=== PATIENT | male | born 1985 | race Caucasian/White ===

== ENCOUNTER 2018-06-18 14:38 | Emergency (ER) | payer MEDICAID, OTHER ==
[~2018-06-18] VITALS: Ht 121.9 cm; Wt 34.0 kg
[2018-06-18 14:41] VITALS: BP 136/72
== END 2018-06-18 15:50 | disposition left against medical advice (07) ==
LOC: ER 14:38
DX: Z00.00 Encounter for general adult medical examination without abnormal findings (principal); G80.9 Cerebral palsy, unspecified
CPT/HCPCS: 99283

== ENCOUNTER 2018-06-26 16:37 | Inpatient (IN) | payer MEDICAID, OTHER ==
[~2018-06-26] VITALS: Ht 167.6 cm; Wt 44.9 kg
[2018-06-26] MEDS ORDERED: CITA10SO MT (16:57)
[2018-06-26] MEDS ORDERED: SODIUM CHLORIDE 0.9% 1000ML BAG (SEPSIS BOLUS) IV ONE (17:30)
[2018-06-26 18:16] LABS: BASOPHILS % 0.3 % (0.0-2.0); CHLORIDE 104 mEq/L (98-107); EOSINOPHILS % 0.8 % (0.0-5.0); HEMATOCRIT. 44.8 % (42.0-52.0); HEMOGLOBIN. 15.2 g/dL (14.0-18.0); INR 1.1; LYMPHOCYTES % 7.8 % (20.0-50.0); MEAN CORPUSCULAR HEMOGLOBIN 30.8 pg (28.0-32.0); MEAN CORPUSCULAR VOLUME 91.2 fL (80.0-94.0); MONOCYTES % 4.4 % (2.0-8.0); NEUTROPHILS % 86.7 % (40.0-76.0); PLATELET 195 x1000/uL (130-400); PROTHROMBIN TIME 11.4 sec (9.1-11.1); RED BLOOD CELL COUNT 4.92 mill/uL (4.7-6.1); RED CELL DISTRIBUTION WIDTH 13.4 % (11.6-14.6)
[2018-06-26] MEDS ORDERED: ACETAMINOPHEN 650MG SUPP PR ONE (20:15)
[2018-06-26 20:17] LABS: CLARITY URINE CLEAR (CLEAR); COLOR URINE YELLOW (YELLOW); KETONES URINE NEGATIVE (NEGATIVE); LEUKOCYTE ESTERASE URINE NEGATIVE (NEGATIVE); NITRITE URINE NEGATIVE (NEGATIVE); OCCULT BLOOD URINE NEGATIVE (NEGATIVE); PH URINE 5.5 (4.5-8.0); PROTEIN URINE NEGATIVE (NEGATIVE); UROBILINOGEN URINE 0.2 E.U./dL (0.2-1.0)
[2018-06-26] MEDS ORDERED: PIPERACILLIN/TAZ 3.375G PREMIX 50 ML IV ONE (21:00)
[2018-06-26] MEDS ORDERED: VANCOMYCIN 1 G PREMIX 200 ML IV ONE (21:00)
[2018-06-26] MEDS ORDERED: DOCUSATE SODIUM 100MG CAPSULE PO PRN (21:45)
[2018-06-26] MEDS ORDERED: HYDROCODONE/ACETAMINOPHEN 5/325MG TABLET PO PRN (21:45)
[2018-06-26] MEDS ORDERED: CLONIDINE 0.1MG TABLET PO PRN (21:45)
[2018-06-26] MEDS ORDERED: ACETAMINOPHEN 325MG TABLET PO PRN (21:45)
[2018-06-26] MEDS ORDERED: IPRATROPIUM/ALBUTEROL 0.5-3(2.5)MG/3ML NEB INH PRN (21:45)
[2018-06-26] MEDS ORDERED: ONDANSETRON HCL 4MG/2ML INJ IV PRN (21:45)
[2018-06-26] MEDS: SODIUM CHLORIDE 0.9% 1,000 ML IV SCH (22:09)
[2018-06-26 23:50] LABS: CHLORIDE 105 mEq/L (98-107)
[2018-06-26 23:58] LABS: CREATINE KINASE 292 IU/L (39-308)
[2018-06-27] VITALS (8 sets, daily range): BP systolic 101–145; BP diastolic 47–89
[2018-06-27 00:01] LABS: CREATINE KINASE MB FRACTION 4.2 ng/mL (0.5-3.6)
[2018-06-27] MEDS ORDERED: ACETAMINOPHEN 650MG SUPP PR PRN (01:00)
[2018-06-27] MEDS ORDERED: ENOXAPARIN 40MG/0.4ML SYR SUBCUT SCH (09:00)
[2018-06-27] MEDS ORDERED: BISACODYL 10MG SUPP PR NR (09:15)
[2018-06-27] MEDS ORDERED: BISACODYL 10MG SUPP PR PRN (09:15)
[2018-06-27 09:18] LABS: BASOPHILS % 0.5 % (0.0-2.0); EOSINOPHILS % 0.6 % (0.0-5.0); HEMATOCRIT. 44.1 % (42.0-52.0); LYMPHOCYTES % 16.1 % (20.0-50.0); MEAN CORPUSCULAR VOLUME 91.2 fL (80.0-94.0); MEAN PLATELET VOLUME 8.7 fl (7.4-10.4); MONOCYTES % 7.5 % (2.0-8.0); NEUTROPHILS % 75.3 % (40.0-76.0); PLATELET 191 x1000/uL (130-400); RED BLOOD CELL COUNT 4.83 mill/uL (4.7-6.1)
[2018-06-27 09:31] LABS: LDL CHOLESTEROL 90 mg/dL (5-100)
[2018-06-27 09:32] LABS: HDL CHOLESTEROL 50 mg/dL (40-59)
[2018-06-27 09:35] LABS: CREATINE KINASE 391 IU/L (39-308)
[2018-06-27 09:36] LABS: CREATINE KINASE MB FRACTION 4.4 ng/mL (0.5-3.6)
[2018-06-27 10:53] LABS: *AMPHETAMINES SCREEN URINE NEGATIVE (NEGATIVE); *BARBITURATES SCREEN URINE NEGATIVE (NEGATIVE)
[2018-06-27 10:54] LABS: *BENZODIAZEPINES SCREEN URINE NEGATIVE (NEGATIVE); *COCAINE SCREEN URINE NEGATIVE (NEGATIVE)
[2018-06-27 10:56] LABS: CANNABINOID URINE SCREEN NEGATIVE (NEGATIVE); METHADONE URINE SCREEN NEGATIVE (NEGATIVE); OPIATES URINE SCREEN NEGATIVE (NEGATIVE); PHENCYCLIDINE URINE SCREEN NEGATIVE (NEGATIVE)
[2018-06-27] MEDS ORDERED: DOCUSATE SODIUM 250MG CAPSULE PO SCH (11:00)
[2018-06-27] MEDS ORDERED: IPRATROPIUM/ALBUTEROL 0.5-3(2.5)MG/3ML NEB HHN PRN (11:15)
[2018-06-27] MEDS ORDERED: CEFEPIME 1,000 MG in DEXTROSE 5% WATER 50 ML IV SCH (12:00)
[2018-06-27] MEDS: SODIUM CHLORIDE 0.9% 1,000 ML IV SCH (13:28)
[2018-06-27] MEDS ORDERED: METRONIDAZOLE 500 MG PREMIX 100 ML IV SCH (14:00)
== END 2018-06-27 20:30 | disposition short-term general hospital (02) | DRG 720 ==
LOC: ER 16:51 → 5EST 21:37 → EDBEDREQ 21:38 → EDBEDREQSVC 21:38 → EDBEDREQTM 21:38 → ENRESERV 06-27 01:05
PROVIDERS: ADMIT Internal Medicine; ATTEND Internal Medicine
DX: A41.9 Sepsis, unspecified organism (principal); J69.0 Pneumonitis due to inhalation of food and vomit; R65.20 Severe sepsis without septic shock; K59.00 Constipation, unspecified; F32.9 Major depressive disorder, single episode, unspecified; G80.9 Cerebral palsy, unspecified
CPT/HCPCS: 36415; 71045; 74176; 80048; 80061; 80305; 82550; 82553; 83605; 83735; 84145; 84443; 84484; 85379; 93005; 96365; 96375; 99285; J0692; J1650; J2543; J3370; J3490; J7030; J7060

== ENCOUNTER 2019-01-14 19:33 | Emergency (ER) | payer MEDICAID, OTHER ==
[~2019-01-14] VITALS: Ht 162.6 cm; Wt 59.0 kg
[2019-01-14] MEDS ORDERED: SODIUM CHLORIDE 0.9% 1,000 ML IV ONE (20:06)
[2019-01-14] MEDS ORDERED: LORAZEPAM 2MG/ML CPJ IV ONE (20:15)
[2019-01-14 22:17] LABS: HEMATOCRIT. 41.4 % (42.0-52.0); HEMOGLOBIN. 14.1 g/dL (14.0-18.0); MEAN CORPUSCULAR HEMOGLOBIN 30.8 pg (28.0-32.0); MEAN CORPUSCULAR VOLUME 90.1 fL (80.0-94.0); MEAN PLATELET VOLUME 9.7 fl (7.4-10.4); PLATELET 187 x1000/uL (130-400); RED BLOOD CELL COUNT 4.59 mill/uL (4.7-6.1); RED CELL DISTRIBUTION WIDTH 13.6 % (11.6-14.6)
[2019-01-14 22:19] LABS: CHLORIDE 106 mEq/L (98-107)
[2019-01-14 22:23] LABS: ETHANOL BLOOD < 10 mg/dL
[2019-01-14 22:28] LABS: CREATINE KINASE 158 IU/L (39-308)
[2019-01-14 22:32] LABS: CREATINE KINASE MB FRACTION 2.9 ng/mL (0.5-3.6)
[2019-01-14 22:44] LABS: PLATELET ESTIMATE NORMAL
[2019-01-14 23:29] VITALS: BP 109/55
== END 2019-01-15 | disposition home or self-care (01) ==
LOC: ER 19:33
DX: R45.1 Restlessness and agitation (principal); R06.02 Shortness of breath; F32.9 Major depressive disorder, single episode, unspecified; G80.9 Cerebral palsy, unspecified
CPT/HCPCS: 36415; 80053; 80320; 82550; 82553; 83690; 84443; 84484; 85025; 93005; 96361; 96374; 99284; J2060; J7030; G0480

== ENCOUNTER 2019-01-30 18:24 | Inpatient (IN) | payer MEDICAID ==
[2019-01-30] VITALS (14 sets, daily range): BP systolic 74–129; BP diastolic 40–76
[~2019-01-30] VITALS: Ht 165.1 cm; Wt 49.9 kg
[2019-01-30] MEDS ORDERED: VECURONIUM BROMIDE 10 MG/VIAL IV ONE ×2 (18:27→18:45)
[2019-01-30] MEDS ORDERED: SODIUM CHLORIDE 0.9% 10ML VIAL ONE (18:27)
[2019-01-30] MEDS ORDERED: ETOMIDATE 2MG/ML 10ML VIAL IV ONE ×2 (18:27→18:45)
[2019-01-30] MEDS ORDERED: SODIUM CHLORIDE 0.9% 1000ML BAG (SEPSIS BOLUS) IV ONE (18:45)
[2019-01-30] MEDS ORDERED: PROPOFOL 200MG/20ML VIAL IV ONE (18:45)
[2019-01-30] MEDS ORDERED: PROPOFOL 10MG/ML 100ML 100 ML IV ONE (18:45)
[2019-01-30] MEDS ORDERED: VANCOMYCIN 1 G PREMIX 200 ML IV ONE (18:45)
[2019-01-30] MEDS ORDERED: PIPERACILLIN/TAZ 3.375G PREMIX 50 ML IV ONE (18:45)
[2019-01-30 18:54] LABS: BG CARBOXYHEMOGLOBIN 0.3 % (0.5-1.5); BG DEOXYHEMOGLOBIN 0.4 % (0.0-5.0); BG FRACTION INSPIRED OXYGEN 100; BG HCO3 ACT 19.2 mmol/L (22.0-26.0); BG METHEMOGLOBIN 0.5 % (0.0-1.5); BG OXYGEN SATURATION 99.6 % (92.0-98.5); BG OXYHEMOGLOBIN 98.8 % (94.0-97.0); BG PCO2 50.4 mmHg (35.0-45.0); BG PH 7.198 (7.350-7.450); BG PO2 476.8 mmHg (75.0-100.0); BG SAMPLE SITE RIGHT BRACHIAL; BG TIDAL VOLUME(mL) 450 mL; BG TOTAL HEMOGLOBIN 13.9 g/dL (12.0-18.0); BG VENT MODE VENT - A/C; BG VENT RATE 16 set
[2019-01-30 19:09] LABS: BASOPHILS % 0.3 % (0.0-2.0); EOSINOPHILS % 3.5 % (0.0-5.0); HEMATOCRIT. 47.3 % (42.0-52.0); HEMOGLOBIN. 15.2 g/dL (14.0-18.0); LYMPHOCYTES % 36.2 % (20.0-50.0); MEAN CORPUSCULAR HEMOGLOBIN 30.9 pg (28.0-32.0); MEAN CORPUSCULAR VOLUME 95.9 fL (80.0-94.0); MEAN PLATELET VOLUME 9.7 fl (7.4-10.4); MONOCYTES % 7.2 % (2.0-8.0); NEUTROPHILS % 52.8 % (40.0-76.0); PLATELET 199 x1000/uL (130-400); RED BLOOD CELL COUNT 4.93 mill/uL (4.7-6.1); RED CELL DISTRIBUTION WIDTH 14.1 % (11.6-14.6)
[2019-01-30 19:13] LABS: CHLORIDE 107 mEq/L (98-107); INR 1.2
[2019-01-30 19:57] LABS: CLARITY URINE CLEAR (CLEAR); COLOR URINE YELLOW (YELLOW); KETONES URINE NEGATIVE (NEGATIVE); LEUKOCYTE ESTERASE URINE TRACE (NEGATIVE); NITRITE URINE NEGATIVE (NEGATIVE); OCCULT BLOOD URINE TRACE (NEGATIVE); PROTEIN URINE 2+ (NEGATIVE); SPECIFIC GRAVITY URINE 1.016 (1.005-1.030); UROBILINOGEN URINE 0.2 E.U./dL (0.2-1.0)
[2019-01-30] MEDS ORDERED: ONDANSETRON HCL 4MG/2ML INJ IV PRN (20:00)
[2019-01-30] MEDS ORDERED: CLONIDINE 0.1MG TABLET PO PRN (20:00)
[2019-01-30] MEDS ORDERED: PIPERACILLIN/TAZOBACTAM 3.375 G in DEXT 5% WATER 100 ML IV SCH (20:00)
[2019-01-30] MEDS ORDERED: FENTANYL CITRATE/PF 500 MCG in SODIUM CHLORIDE 0.9% 40 ML IV PRN ×2 (21:00→21:15)
[2019-01-30] MEDS: SODIUM CHLORIDE 0.9% 1,000 ML IV SCH (22:56)
[2019-01-30] MEDS ORDERED: CITA10SO PO (23:22)
[2019-01-30] MEDS: PIPERACILLIN/TAZOBACTAM 3.375 G in DEXT 5% WATER 100 ML IV SCH (23:24)
[2019-01-30 23:44] LABS: BG BASE EXCESS -0.3 mmol/L (-2.0-2.0); BG CARBOXYHEMOGLOBIN 0.3 % (0.5-1.5); BG DEOXYHEMOGLOBIN 7.2 % (0.0-5.0); BG FRACTION INSPIRED OXYGEN 60; BG HCO3 ACT 25.3 mmol/L (22.0-26.0); BG METHEMOGLOBIN 0.3 % (0.0-1.5); BG OXYGEN SATURATION 92.8 % (92.0-98.5); BG OXYHEMOGLOBIN 92.2 % (94.0-97.0); BG PCO2 45.2 mmHg (35.0-45.0); BG PH 7.366 (7.350-7.450); BG PO2 65.7 mmHg (75.0-100.0); BG SAMPLE SITE RIGHT BRACHIAL; BG TIDAL VOLUME(mL) 450 mL; BG TOTAL HEMOGLOBIN 13.3 g/dL (12.0-18.0); BG VENT MODE VENT - A/C; BG VENT RATE 20 set
[2019-01-30] MEDS: IPRATROPIUM/ALBUTEROL 0.5-3(2.5)MG/3ML NEB HHN SCH (23:58)
[2019-01-31] VITALS (103 sets, daily range): BP systolic 65–144; BP diastolic 30–88
[2019-01-31] MEDS ORDERED: IPRATROPIUM BROMIDE (0.02%) 0.5MG/2.5ML NEB HHN SCH
[2019-01-31] MEDS: VANCOMYCIN 1250MG in DEXTROSE 5% WATER 250ML IV SCH ×3 (01:54→19:28)
[2019-01-31] MEDS: PROPOFOL 10MG/ML 100ML 100 ML IV PRN ×3 (01:55→23:18)
[2019-01-31] MEDS: IPRATROPIUM/ALBUTEROL 0.5-3(2.5)MG/3ML NEB HHN SCH ×5 (04:01→20:31)
[2019-01-31] MEDS: PIPERACILLIN/TAZOBACTAM 3.375 G in DEXT 5% WATER 100 ML IV SCH ×4 (05:18→23:17)
[2019-01-31 05:57] LABS: BASOPHILS % 0.1 % (0.0-2.0); EOSINOPHILS % 2.3 % (0.0-5.0); HEMATOCRIT. 39.8 % (42.0-52.0); HEMOGLOBIN. 13.5 g/dL (14.0-18.0); LYMPHOCYTES % 7.1 % (20.0-50.0); MEAN CORPUSCULAR HEMOGLOBIN 31.4 pg (28.0-32.0); MEAN CORPUSCULAR VOLUME 92.5 fL (80.0-94.0); MEAN PLATELET VOLUME 9.7 fl (7.4-10.4); MONOCYTES % 5.8 % (2.0-8.0); NEUTROPHILS % 84.7 % (40.0-76.0); PLATELET 141 x1000/uL (130-400)
[2019-01-31 06:06] LABS: CHLORIDE 112 mEq/L (98-107)
[2019-01-31 07:56] LABS: BG BASE EXCESS -3.3 mmol/L (-2.0-2.0); BG DEOXYHEMOGLOBIN 0.5 % (0.0-5.0); BG FRACTION INSPIRED OXYGEN 70; BG HCO3 ACT 21.4 mmol/L (22.0-26.0); BG METHEMOGLOBIN 0.5 % (0.0-1.5); BG OXYGEN SATURATION 99.5 % (92.0-98.5); BG PCO2 37.1 mmHg (35.0-45.0); BG PH 7.378 (7.350-7.450); BG PO2 323.2 mmHg (75.0-100.0); BG SAMPLE SITE RIGHT RADIAL; BG TIDAL VOLUME(mL) 450 mL; BG TOTAL HEMOGLOBIN 13.7 g/dL (12.0-18.0); BG VENT MODE VENT - A/C; BG VENT RATE 20 set
[2019-01-31] MEDS: PANTOPRAZOLE SODIUM 40 MG/VIAL IV SCH (09:02)
[2019-01-31] MEDS: ACETAMINOPHEN 325MG TABLET PO PRN (11:58)
[2019-01-31] MEDS ORDERED: SODIUM CHLORIDE 0.9% 500 ML IV ONE (12:45)
[2019-01-31] MEDS: SODIUM CHLORIDE 0.9% 1,000 ML IV SCH (12:51)
[2019-01-31] MEDS: FENTANYL CITRATE/PF 500 MCG in SODIUM CHLORIDE 0.9% 40 ML IV PRN ×2 (14:43→20:39)
[2019-02-01] VITALS (96 sets, daily range): BP systolic 71–145; BP diastolic 38–88
[2019-02-01] MEDS: IPRATROPIUM/ALBUTEROL 0.5-3(2.5)MG/3ML NEB HHN SCH ×6 (00:36→19:54)
[2019-02-01] MEDS ORDERED: PROPOFOL 10MG/ML 100ML 100 ML IV PRN (01:00)
[2019-02-01] MEDS: VANCOMYCIN 1250MG in DEXTROSE 5% WATER 250ML IV SCH (01:20)
[2019-02-01] MEDS: PIPERACILLIN/TAZOBACTAM 3.375 G in DEXT 5% WATER 100 ML IV SCH ×4 (05:40→23:19)
[2019-02-01 05:44] LABS: CHLORIDE 114 mEq/L (98-107)
[2019-02-01] MEDS: PANTOPRAZOLE SODIUM 40 MG/VIAL IV SCH (08:21)
[2019-02-01] MEDS: SODIUM CHLORIDE 0.9% 1,000 ML IV SCH ×2 (08:22→15:36)
[2019-02-01 08:38] LABS: BG CARBOXYHEMOGLOBIN 0.3 % (0.5-1.5); BG DEOXYHEMOGLOBIN 3.6 % (0.0-5.0); BG FRACTION INSPIRED OXYGEN 50; BG HCO3 ACT 22.8 mmol/L (22.0-26.0); BG METHEMOGLOBIN 0.3 % (0.0-1.5); BG OXYGEN SATURATION 96.4 % (92.0-98.5); BG OXYHEMOGLOBIN 95.8 % (94.0-97.0); BG PCO2 43.3 mmHg (35.0-45.0); BG PH 7.339 (7.350-7.450); BG PO2 92.1 mmHg (75.0-100.0); BG SAMPLE SITE RIGHT BRACHIAL; BG TIDAL VOLUME(mL) 450 mL; BG TOTAL HEMOGLOBIN 12.5 g/dL (12.0-18.0); BG VENT MODE VENT - A/C; BG VENT RATE 20 set
[2019-02-01 10:17] LABS: BASOPHILS % 0.2 % (0.0-2.0); EOSINOPHILS % 2.6 % (0.0-5.0); HEMATOCRIT. 34.6 % (42.0-52.0); LYMPHOCYTES % 9.9 % (20.0-50.0); MEAN CORPUSCULAR HEMOGLOBIN 31.4 pg (28.0-32.0); MEAN CORPUSCULAR VOLUME 90.8 fL (80.0-94.0); MEAN PLATELET VOLUME 8.9 fl (7.4-10.4); MONOCYTES % 5.9 % (2.0-8.0); NEUTROPHILS % 81.4 % (40.0-76.0); PLATELET 129 x1000/uL (130-400); RED BLOOD CELL COUNT 3.81 mill/uL (4.7-6.1); RED CELL DISTRIBUTION WIDTH 13.8 % (11.6-14.6)
[2019-02-01] MEDS: CITALOPRAM HYDROBROMIDE 10MG TABLET PO SCH (10:52)
[2019-02-01] MEDS: ACETAMINOPHEN 325MG TABLET PO PRN (13:45)
[2019-02-01] MEDS: FENTANYL CITRATE/PF 500 MCG in SODIUM CHLORIDE 0.9% 40 ML IV PRN (18:03)
[2019-02-01] MEDS: VANCOMYCIN 1 G PREMIX 200 ML IV SCH (21:14)
[2019-02-01] MEDS ORDERED: FENTANYL CITRATE/PF 1,000 MCG in SODIUM CHLORIDE 0.9% 80 ML IV PRN (21:30)
[2019-02-01] MEDS: LORAZEPAM 2MG/ML CPJ IV PRN (21:44)
[2019-02-02] VITALS (96 sets, daily range): BP systolic 87–163; BP diastolic 48–118
[2019-02-02] MEDS: IPRATROPIUM/ALBUTEROL 0.5-3(2.5)MG/3ML NEB HHN SCH ×7 (00:29→23:59)
[2019-02-02] MEDS: FENTANYL CITRATE/PF 1,000 MCG in SODIUM CHLORIDE 0.9% 80 ML IV PRN ×3 (00:58→21:29)
[2019-02-02] MEDS: SODIUM CHLORIDE 0.9% 1,000 ML IV SCH ×2 (04:01→18:26)
[2019-02-02] MEDS: LORAZEPAM 2MG/ML CPJ IV PRN ×2 (05:06→19:27)
[2019-02-02] MEDS: PIPERACILLIN/TAZOBACTAM 3.375 G in DEXT 5% WATER 100 ML IV SCH ×4 (05:07→23:42)
[2019-02-02 05:30] LABS: BASOPHILS % 0.2 % (0.0-2.0); EOSINOPHILS % 1.1 % (0.0-5.0); HEMATOCRIT. 38.4 % (42.0-52.0); HEMOGLOBIN. 13.2 g/dL (14.0-18.0); LYMPHOCYTES % 7.6 % (20.0-50.0); MEAN CORPUSCULAR HEMOGLOBIN 31.5 pg (28.0-32.0); MEAN CORPUSCULAR VOLUME 91.8 fL (80.0-94.0); MEAN PLATELET VOLUME 8.5 fl (7.4-10.4); MONOCYTES % 6.6 % (2.0-8.0); NEUTROPHILS % 84.5 % (40.0-76.0); PLATELET 146 x1000/uL (130-400); RED BLOOD CELL COUNT 4.18 mill/uL (4.7-6.1); RED CELL DISTRIBUTION WIDTH 13.8 % (11.6-14.6)
[2019-02-02 05:37] LABS: CHLORIDE 111 mEq/L (98-107)
[2019-02-02] MEDS: PANTOPRAZOLE SODIUM 40 MG/VIAL IV SCH (08:20)
[2019-02-02] MEDS: CITALOPRAM HYDROBROMIDE 10MG TABLET PO SCH (08:23)
[2019-02-02 09:18] LABS: BG BASE EXCESS -1.9 mmol/L (-2.0-2.0); BG CARBOXYHEMOGLOBIN 0.4 % (0.5-1.5); BG FRACTION INSPIRED OXYGEN 45; BG HCO3 ACT 22.6 mmol/L (22.0-26.0); BG METHEMOGLOBIN 0.2 % (0.0-1.5); BG OXYHEMOGLOBIN 98.4 % (94.0-97.0); BG PCO2 37.7 mmHg (35.0-45.0); BG PH 7.395 (7.350-7.450); BG PO2 168.4 mmHg (75.0-100.0); BG SAMPLE SITE RIGHT RADIAL; BG TIDAL VOLUME(mL) 450 mL; BG TOTAL HEMOGLOBIN 12.7 g/dL (12.0-18.0); BG VENT MODE VENT - A/C; BG VENT RATE 20 set
[2019-02-02] MEDS: VANCOMYCIN 1 G PREMIX 200 ML IV SCH ×2 (10:42→21:28)
[2019-02-02] MEDS ORDERED: LORAZEPAM 2MG/ML CPJ IV PRN (10:45)
[2019-02-02] MEDS: ACETYLCYSTEINE 100MG/ML 10% VIAL 4ML INH SCH ×2 (12:13→16:46)
[2019-02-02] MEDS: ACETAMINOPHEN 325MG TABLET PO PRN (20:09)
[2019-02-02] MEDS ORDERED: ENOXAPARIN 40MG/0.4ML SYR SUBCUT SCH (21:00)
[2019-02-03] VITALS (79 sets, daily range): BP systolic 92–169; BP diastolic 54–121
[2019-02-03] MEDS: LORAZEPAM 2MG/ML CPJ IV PRN ×2 (02:22→08:04)
[2019-02-03] MEDS: IPRATROPIUM/ALBUTEROL 0.5-3(2.5)MG/3ML NEB HHN SCH ×5 (04:09→20:34)
[2019-02-03] MEDS: PIPERACILLIN/TAZOBACTAM 3.375 G in DEXT 5% WATER 100 ML IV SCH ×3 (05:36→17:46)
[2019-02-03] MEDS: FENTANYL CITRATE/PF 1,000 MCG in SODIUM CHLORIDE 0.9% 80 ML IV PRN ×2 (08:04→19:05)
[2019-02-03] MEDS: ACETYLCYSTEINE 100MG/ML 10% VIAL 4ML INH SCH ×3 (08:45→16:02)
[2019-02-03 09:08] LABS: BG CARBOXYHEMOGLOBIN 0.2 % (0.5-1.5); BG FRACTION INSPIRED OXYGEN 45; BG HCO3 ACT 19.8 mmol/L (22.0-26.0); BG METHEMOGLOBIN 0.2 % (0.0-1.5); BG OXYHEMOGLOBIN 97.6 % (94.0-97.0); BG PCO2 44.9 mmHg (35.0-45.0); BG PH 7.263 (7.350-7.450); BG PO2 122.3 mmHg (75.0-100.0); BG SAMPLE SITE RIGHT BRACHIAL; BG TIDAL VOLUME(mL) 450 mL; BG TOTAL HEMOGLOBIN 13.3 g/dL (12.0-18.0); BG VENT MODE VENT - A/C; BG VENT RATE 18 set
[2019-02-03] MEDS: SODIUM CHLORIDE 0.9% 1,000 ML IV SCH (10:41)
[2019-02-03] MEDS: VANCOMYCIN 1 G PREMIX 200 ML IV SCH ×2 (11:55→22:17)
[2019-02-03] MEDS: PANTOPRAZOLE SODIUM 40 MG/VIAL IV SCH (11:55)
[2019-02-03] MEDS ORDERED: SODIUM BICARBONATE 8.4% 1 MEQ/ML 50ML SYR IV SCH (12:15)
[2019-02-03] MEDS: CITALOPRAM HYDROBROMIDE 10MG TABLET PO SCH (13:05)
[2019-02-03] MEDS: ENOXAPARIN 30MG/0.3ML SYR SUBCUT SCH (20:19)
[2019-02-03] MEDS ORDERED: PROPOFOL 10MG/ML 100ML 100 ML IV PRN (20:45)
[2019-02-04] VITALS (103 sets, daily range): BP systolic 82–147; BP diastolic 42–96
[2019-02-04] MEDS: PIPERACILLIN/TAZOBACTAM 3.375 G in DEXT 5% WATER 100 ML IV SCH ×5 (00:17→23:19)
[2019-02-04] MEDS: SODIUM CHLORIDE 0.9% 1,000 ML IV SCH ×3 (01:02→22:03)
[2019-02-04] MEDS: ACETYLCYSTEINE 100MG/ML 10% VIAL 4ML INH SCH ×4 (01:05→23:42)
[2019-02-04] MEDS: IPRATROPIUM/ALBUTEROL 0.5-3(2.5)MG/3ML NEB HHN SCH ×7 (01:06→23:42)
[2019-02-04 05:18] LABS: CHLORIDE 111 mEq/L (98-107)
[2019-02-04 05:40] LABS: BASOPHILS % 0.4 % (0.0-2.0); EOSINOPHILS % 3.6 % (0.0-5.0); HEMATOCRIT. 34.7 % (42.0-52.0); LYMPHOCYTES % 15.3 % (20.0-50.0); MEAN CORPUSCULAR HEMOGLOBIN 30.8 pg (28.0-32.0); MEAN CORPUSCULAR VOLUME 89.1 fL (80.0-94.0); MEAN PLATELET VOLUME 8.4 fl (7.4-10.4); MONOCYTES % 8.2 % (2.0-8.0); NEUTROPHILS % 72.5 % (40.0-76.0); PLATELET 188 x1000/uL (130-400); RED BLOOD CELL COUNT 3.89 mill/uL (4.7-6.1); RED CELL DISTRIBUTION WIDTH 13.8 % (11.6-14.6)
[2019-02-04] MEDS: FENTANYL CITRATE/PF 1,000 MCG in SODIUM CHLORIDE 0.9% 80 ML IV PRN ×2 (06:03→16:38)
[2019-02-04] MEDS: PANTOPRAZOLE SODIUM 40 MG/VIAL IV SCH (08:34)
[2019-02-04] MEDS: CITALOPRAM HYDROBROMIDE 10MG TABLET PO SCH (08:35)
[2019-02-04 08:50] LABS: BG BASE EXCESS 0.7 mmol/L (-2.0-2.0); BG CARBOXYHEMOGLOBIN 0.3 % (0.5-1.5); BG FRACTION INSPIRED OXYGEN 45; BG HCO3 ACT 24.9 mmol/L (22.0-26.0); BG METHEMOGLOBIN 0.4 % (0.0-1.5); BG OXYHEMOGLOBIN 98.3 % (94.0-97.0); BG PCO2 38.1 mmHg (35.0-45.0); BG PH 7.433 (7.350-7.450); BG PO2 166.9 mmHg (75.0-100.0); BG SAMPLE SITE RIGHT RADIAL; BG TIDAL VOLUME(mL) 450 mL; BG VENT MODE VENT - A/C; BG VENT RATE 22 set
[2019-02-04] MEDS: VANCOMYCIN 1 G PREMIX 200 ML IV SCH ×2 (09:58→21:11)
[2019-02-04] MEDS ORDERED: POTASSIUM CHLORIDE INJ 40 MEQ in DEXT 5% WATER 250 ML IV SCH (11:00)
[2019-02-04] MEDS ORDERED: NA PHOS,M-B/NA PHOS,DI-BA ENEMA 118ML PR NR (11:17)
[2019-02-04] MEDS: PROPOFOL 10MG/ML 100ML 100 ML IV PRN ×2 (14:30→21:56)
[2019-02-04] MEDS: ENOXAPARIN 30MG/0.3ML SYR SUBCUT SCH (21:01)
[2019-02-04] MEDS: LACTULOSE 20G/30ML UDC PO SCH (21:11)
[2019-02-05] VITALS (48 sets, daily range): BP systolic 87–193; BP diastolic 44–106
[2019-02-05] MEDS: IPRATROPIUM/ALBUTEROL 0.5-3(2.5)MG/3ML NEB HHN SCH ×5 (03:42→20:27)
[2019-02-05] MEDS: FENTANYL CITRATE/PF 1,000 MCG in SODIUM CHLORIDE 0.9% 80 ML IV PRN ×3 (03:56→23:49)
[2019-02-05 05:03] LABS: BASOPHILS % 0.3 % (0.0-2.0); EOSINOPHILS % 7.4 % (0.0-5.0); HEMATOCRIT. 31.4 % (42.0-52.0); LYMPHOCYTES % 13.9 % (20.0-50.0); MEAN CORPUSCULAR HEMOGLOBIN 31.4 pg (28.0-32.0); MEAN CORPUSCULAR VOLUME 89.4 fL (80.0-94.0); MEAN PLATELET VOLUME 8.1 fl (7.4-10.4); MONOCYTES % 7.7 % (2.0-8.0); NEUTROPHILS % 70.7 % (40.0-76.0); PLATELET 193 x1000/uL (130-400); RED BLOOD CELL COUNT 3.52 mill/uL (4.7-6.1); RED CELL DISTRIBUTION WIDTH 13.9 % (11.6-14.6)
[2019-02-05 05:04] LABS: CHLORIDE 115 mEq/L (98-107)
[2019-02-05] MEDS: PIPERACILLIN/TAZOBACTAM 3.375 G in DEXT 5% WATER 100 ML IV SCH ×4 (06:15→23:27)
[2019-02-05] MEDS: ACETYLCYSTEINE 100MG/ML 10% VIAL 4ML INH SCH ×2 (08:01→15:36)
[2019-02-05] MEDS: PANTOPRAZOLE SODIUM 40 MG/VIAL IV SCH (08:14)
[2019-02-05] MEDS: CITALOPRAM HYDROBROMIDE 10MG TABLET PO SCH (08:15)
[2019-02-05] MEDS: PROPOFOL 10MG/ML 100ML 100 ML IV PRN ×2 (08:16→23:28)
[2019-02-05 09:12] LABS: BG BASE EXCESS 1.3 mmol/L (-2.0-2.0); BG CARBOXYHEMOGLOBIN 0.3 % (0.5-1.5); BG FRACTION INSPIRED OXYGEN 40; BG HCO3 ACT 26.6 mmol/L (22.0-26.0); BG METHEMOGLOBIN 0.3 % (0.0-1.5); BG OXYHEMOGLOBIN 98.4 % (94.0-97.0); BG PCO2 44.9 mmHg (35.0-45.0); BG PO2 187.1 mmHg (75.0-100.0); BG SAMPLE SITE LEFT RADIAL; BG TIDAL VOLUME(mL) 450 mL; BG TOTAL HEMOGLOBIN 11.9 g/dL (12.0-18.0); BG VENT MODE VENT - A/C; BG VENT RATE 20 set
[2019-02-05] MEDS ORDERED: POTASSIUM CHLORIDE 20MEQ/PACKET PO NR (09:30)
[2019-02-05] MEDS ORDERED: POTASSIUM CHLORIDE 20MEQ/PACKET NG NR (09:30)
[2019-02-05] MEDS: VANCOMYCIN 1 G PREMIX 200 ML IV SCH ×2 (11:53→21:17)
[2019-02-05] MEDS: QUETIAPINE FUMARATE 25MG TABLET PO SCH (11:53)
[2019-02-05] MEDS: SODIUM CHLORIDE 0.9% 1,000 ML IV SCH (12:04)
[2019-02-05] MEDS: DOCUSATE SODIUM SUGAR FREE 100MG/10ML UDC NG SCH (15:48)
[2019-02-05] MEDS ORDERED: MAGNESIUM 2 G PREMIX 50 ML IV SCH (17:00)
[2019-02-05] MEDS: METOCLOPRAMIDE HCL 10MG/2ML VIAL IV SCH ×2 (17:42→23:27)
[2019-02-05] MEDS: LACTULOSE 20G/30ML UDC PO SCH (20:36)
[2019-02-05] MEDS: ENOXAPARIN 30MG/0.3ML SYR SUBCUT SCH (20:37)
[2019-02-06] VITALS (48 sets, daily range): BP systolic 95–161; BP diastolic 39–85
[2019-02-06] MEDS: ACETYLCYSTEINE 100MG/ML 10% VIAL 4ML INH SCH ×3 (00:29→16:00)
[2019-02-06] MEDS: IPRATROPIUM/ALBUTEROL 0.5-3(2.5)MG/3ML NEB HHN SCH ×6 (00:29→20:49)
[2019-02-06] MEDS: SODIUM CHLORIDE 0.9% 1,000 ML IV SCH ×2 (02:12→16:18)
[2019-02-06 05:36] LABS: HEMATOCRIT. 30.7 % (42.0-52.0); HEMOGLOBIN. 10.7 g/dL (14.0-18.0); MEAN CORPUSCULAR VOLUME 89.2 fL (80.0-94.0); MEAN PLATELET VOLUME 8.1 fl (7.4-10.4); PLATELET 215 x1000/uL (130-400); RED BLOOD CELL COUNT 3.44 mill/uL (4.7-6.1); RED CELL DISTRIBUTION WIDTH 13.9 % (11.6-14.6)
[2019-02-06 05:50] LABS: CHLORIDE 118 mEq/L (98-107)
[2019-02-06] MEDS: PIPERACILLIN/TAZOBACTAM 3.375 G in DEXT 5% WATER 100 ML IV SCH ×4 (05:58→23:59)
[2019-02-06] MEDS: METOCLOPRAMIDE HCL 10MG/2ML VIAL IV SCH ×4 (05:58→23:59)
[2019-02-06 05:59] LABS: PHOSPHORUS 1.6 mg/dL (2.5-4.9)
[2019-02-06 07:20] LABS: BG BASE EXCESS 0.4 mmol/L (-2.0-2.0); BG CARBOXYHEMOGLOBIN 0.3 % (0.5-1.5); BG DEOXYHEMOGLOBIN 1.8 % (0.0-5.0); BG HCO3 ACT 24.8 mmol/L (22.0-26.0); BG METHEMOGLOBIN 0.4 % (0.0-1.5); BG OXYGEN SATURATION 98.2 % (92.0-98.5); BG OXYHEMOGLOBIN 97.5 % (94.0-97.0); BG PCO2 39.1 mmHg (35.0-45.0); BG PO2 119.5 mmHg (75.0-100.0); BG SAMPLE SITE RIGHT BRACHIAL; BG TIDAL VOLUME(mL) 450 mL; BG TOTAL HEMOGLOBIN 11.4 g/dL (12.0-18.0); BG VENT MODE VENT - A/C; BG VENT RATE 20 set
[2019-02-06] MEDS: PROPOFOL 10MG/ML 100ML 100 ML IV PRN ×2 (07:24→18:12)
[2019-02-06] MEDS ORDERED: BISACODYL 5MG TABLET PO PRN (07:30)
[2019-02-06] MEDS ORDERED: NA PHOS,M-B/NA PHOS,DI-BA ENEMA 118ML PR SCH (08:00)
[2019-02-06] MEDS ORDERED: POTASSIUM CHLORIDE 20MEQ/PACKET PO SCH (08:00)
[2019-02-06] MEDS: DOCUSATE SODIUM SUGAR FREE 100MG/10ML UDC NG SCH (08:14)
[2019-02-06] MEDS: PANTOPRAZOLE SODIUM 40 MG/VIAL IV SCH (08:14)
[2019-02-06] MEDS: QUETIAPINE FUMARATE 25MG TABLET PO SCH (08:15)
[2019-02-06] MEDS: CITALOPRAM HYDROBROMIDE 10MG TABLET PO SCH (08:15)
[2019-02-06] MEDS ORDERED: PROPOFOL 10MG/ML 100ML 100 ML IV PRN (08:15)
[2019-02-06] MEDS: BISACODYL 10MG SUPP PR PRN (08:15)
[2019-02-06 08:23] LABS: PLATELET ESTIMATE NORMAL
[2019-02-06] MEDS ORDERED: POTASSIUM CHLORIDE INJ 40 MEQ in DEXT 5% WATER 500 ML IV SCH (09:00)
[2019-02-06] MEDS: VANCOMYCIN 1 G PREMIX 200 ML IV SCH ×2 (10:16→21:09)
[2019-02-06] MEDS: FENTANYL CITRATE/PF 1,000 MCG in SODIUM CHLORIDE 0.9% 80 ML IV PRN (10:41)
[2019-02-06 16:35] LABS: BG BASE EXCESS -1.9 mmol/L (-2.0-2.0); BG CARBOXYHEMOGLOBIN 0.3 % (0.5-1.5); BG DEOXYHEMOGLOBIN 1.4 % (0.0-5.0); BG HCO3 ACT 24.8 mmol/L (22.0-26.0); BG METHEMOGLOBIN 0.7 % (0.0-1.5); BG OXYGEN SATURATION 98.6 % (92.0-98.5); BG OXYHEMOGLOBIN 97.6 % (94.0-97.0); BG PCO2 50.5 mmHg (35.0-45.0); BG PH 7.309 (7.350-7.450); BG PO2 147.7 mmHg (75.0-100.0); BG SAMPLE SITE RIGHT BRACHIAL; BG TIDAL VOLUME(mL) 450 mL; BG VENT MODE VENT - SIMV; BG VENT RATE 10 set
[2019-02-06] MEDS ORDERED: POTASSIUM PHOS,M-BASIC-D-BASIC 15 MMOL in DEXT 5% WATER 245 ML IV NR (18:00)
[2019-02-06] MEDS: DEXT 5%/0.45% NACL 1000ML 1,000 ML IV SCH (18:10)
[2019-02-06] MEDS: LACTULOSE 20G/30ML UDC PO SCH (20:45)
[2019-02-06] MEDS: ENOXAPARIN 30MG/0.3ML SYR SUBCUT SCH (20:46)
[2019-02-07] VITALS (43 sets, daily range): BP systolic 105–163; BP diastolic 46–92
[2019-02-07] MEDS: FENTANYL CITRATE/PF 1,000 MCG in SODIUM CHLORIDE 0.9% 80 ML IV PRN (00:38)
[2019-02-07] MEDS: IPRATROPIUM/ALBUTEROL 0.5-3(2.5)MG/3ML NEB HHN SCH ×7 (00:54→23:42)
[2019-02-07] MEDS: ACETYLCYSTEINE 100MG/ML 10% VIAL 4ML INH SCH ×3 (00:54→15:52)
[2019-02-07] MEDS: PIPERACILLIN/TAZOBACTAM 3.375 G in DEXT 5% WATER 100 ML IV SCH ×4 (05:45→23:26)
[2019-02-07] MEDS: METOCLOPRAMIDE HCL 10MG/2ML VIAL IV SCH ×4 (05:45→23:26)
[2019-02-07 06:29] LABS: BASOPHILS % 0.4 % (0.0-2.0); EOSINOPHILS % 10.5 % (0.0-5.0); HEMATOCRIT. 30.3 % (42.0-52.0); HEMOGLOBIN. 10.5 g/dL (14.0-18.0); MEAN CORPUSCULAR HEMOGLOBIN 31.3 pg (28.0-32.0); MEAN PLATELET VOLUME 8.5 fl (7.4-10.4); MONOCYTES % 8.4 % (2.0-8.0); NEUTROPHILS % 65.7 % (40.0-76.0); PLATELET 205 x1000/uL (130-400); RED BLOOD CELL COUNT 3.37 mill/uL (4.7-6.1); RED CELL DISTRIBUTION WIDTH 14.6 % (11.6-14.6)
[2019-02-07 06:42] LABS: CHLORIDE 114 mEq/L (98-107)
[2019-02-07 06:49] LABS: PHOSPHORUS 3.9 mg/dL (2.5-4.9)
[2019-02-07 08:07] LABS: BG BASE EXCESS 4.6 mmol/L (-2.0-2.0); BG CARBOXYHEMOGLOBIN 0.3 % (0.5-1.5); BG DEOXYHEMOGLOBIN 1.5 % (0.0-5.0); BG FRACTION INSPIRED OXYGEN 40; BG HCO3 ACT 31.2 mmol/L (22.0-26.0); BG METHEMOGLOBIN 0.9 % (0.0-1.5); BG OXYGEN SATURATION 98.5 % (92.0-98.5); BG OXYHEMOGLOBIN 97.3 % (94.0-97.0); BG PCO2 56.3 mmHg (35.0-45.0); BG PH 7.362 (7.350-7.450); BG PO2 172.8 mmHg (75.0-100.0); BG SAMPLE SITE RIGHT BRACHIAL; BG TIDAL VOLUME(mL) 450 mL; BG TOTAL HEMOGLOBIN 11.5 g/dL (12.0-18.0); BG VENT MODE VENT - A/C; BG VENT RATE 16 set
[2019-02-07] MEDS: PROPOFOL 10MG/ML 100ML 100 ML IV PRN ×2 (08:17→18:50)
[2019-02-07] MEDS: DOCUSATE SODIUM SUGAR FREE 100MG/10ML UDC NG SCH (08:30)
[2019-02-07] MEDS: PANTOPRAZOLE SODIUM 40 MG/VIAL IV SCH (08:30)
[2019-02-07] MEDS: CITALOPRAM HYDROBROMIDE 10MG TABLET PO SCH (08:30)
[2019-02-07] MEDS: QUETIAPINE FUMARATE 25MG TABLET PO SCH (08:31)
[2019-02-07] MEDS: VANCOMYCIN 1 G PREMIX 200 ML IV SCH ×2 (10:00→21:44)
[2019-02-07] MEDS: DEXT 5%/0.45% NACL 1000ML 1,000 ML IV SCH (12:30)
[2019-02-07 14:18] LABS: BG BASE EXCESS 3.7 mmol/L (-2.0-2.0); BG CARBOXYHEMOGLOBIN 0.3 % (0.5-1.5); BG DEOXYHEMOGLOBIN 1.9 % (0.0-5.0); BG FRACTION INSPIRED OXYGEN 40; BG HCO3 ACT 29.1 mmol/L (22.0-26.0); BG METHEMOGLOBIN 0.3 % (0.0-1.5); BG OXYGEN SATURATION 98.1 % (92.0-98.5); BG OXYHEMOGLOBIN 97.5 % (94.0-97.0); BG PCO2 47.5 mmHg (35.0-45.0); BG PH 7.405 (7.350-7.450); BG PO2 124.3 mmHg (75.0-100.0); BG PRESSURE SUPPORT 12; BG SAMPLE SITE RIGHT BRACHIAL; BG TIDAL VOLUME(mL) 450 mL; BG TOTAL HEMOGLOBIN 11.5 g/dL (12.0-18.0); BG VENT MODE VENT - SIMV; BG VENT RATE 8 set
[2019-02-07] MEDS: LACTULOSE 20G/30ML UDC PO SCH (20:29)
[2019-02-07] MEDS: ENOXAPARIN 30MG/0.3ML SYR SUBCUT SCH (20:29)
[2019-02-08] VITALS (45 sets, daily range): BP systolic 81–186; BP diastolic 49–139
[2019-02-08] MEDS: IPRATROPIUM/ALBUTEROL 0.5-3(2.5)MG/3ML NEB HHN SCH ×5 (03:31→20:39)
[2019-02-08 05:28] LABS: HEMATOCRIT. 33.2 % (42.0-52.0); HEMOGLOBIN. 11.4 g/dL (14.0-18.0); MEAN CORPUSCULAR HEMOGLOBIN 31.1 pg (28.0-32.0); MEAN CORPUSCULAR VOLUME 90.3 fL (80.0-94.0); MEAN PLATELET VOLUME 8.4 fl (7.4-10.4); PLATELET 243 x1000/uL (130-400); RED BLOOD CELL COUNT 3.68 mill/uL (4.7-6.1); RED CELL DISTRIBUTION WIDTH 14.2 % (11.6-14.6)
[2019-02-08] MEDS: PIPERACILLIN/TAZOBACTAM 3.375 G in DEXT 5% WATER 100 ML IV SCH ×2 (05:31→13:37)
[2019-02-08] MEDS: METOCLOPRAMIDE HCL 10MG/2ML VIAL IV SCH ×2 (05:31→13:37)
[2019-02-08 05:33] LABS: CHLORIDE 106 mEq/L (98-107)
[2019-02-08] MEDS: LORAZEPAM 2MG/ML CPJ IV PRN ×3 (06:25→22:24)
[2019-02-08 07:40] LABS: PLATELET ESTIMATE NORMAL
[2019-02-08] MEDS: PANTOPRAZOLE SODIUM 40 MG/VIAL IV SCH (08:12)
[2019-02-08] MEDS: DOCUSATE SODIUM SUGAR FREE 100MG/10ML UDC NG SCH (08:12)
[2019-02-08] MEDS: QUETIAPINE FUMARATE 25MG TABLET PO SCH (08:13)
[2019-02-08] MEDS: CITALOPRAM HYDROBROMIDE 10MG TABLET PO SCH (08:13)
[2019-02-08] MEDS: DEXT 5%/0.45% NACL 1000ML 1,000 ML IV SCH ×2 (08:30→22:01)
[2019-02-08] MEDS: PROPOFOL 10MG/ML 100ML 100 ML IV PRN (08:31)
[2019-02-08 08:43] LABS: BG BASE EXCESS 8.4 mmol/L (-2.0-2.0); BG CARBOXYHEMOGLOBIN 0.3 % (0.5-1.5); BG DEOXYHEMOGLOBIN 1.2 % (0.0-5.0); BG FRACTION INSPIRED OXYGEN 40; BG HCO3 ACT 33.7 mmol/L (22.0-26.0); BG METHEMOGLOBIN 0.6 % (0.0-1.5); BG OXYGEN SATURATION 98.8 % (92.0-98.5); BG OXYHEMOGLOBIN 97.9 % (94.0-97.0); BG PCO2 49.9 mmHg (35.0-45.0); BG PH 7.448 (7.350-7.450); BG PO2 153.7 mmHg (75.0-100.0); BG PRESSURE SUPPORT 12; BG SAMPLE SITE RIGHT BRACHIAL; BG TIDAL VOLUME(mL) 450 mL; BG TOTAL HEMOGLOBIN 12.2 g/dL (12.0-18.0); BG VENT MODE VENT - SIMV; BG VENT RATE 8 set
[2019-02-08] MEDS ORDERED: PROPOFOL 10MG/ML 100ML 100 ML IV PRN (09:45)
[2019-02-08] MEDS: VANCOMYCIN 1 G PREMIX 200 ML IV SCH ×2 (10:00→22:00)
[2019-02-08] MEDS: LACTULOSE 20G/30ML UDC PO SCH (22:00)
[2019-02-08] MEDS: ENOXAPARIN 30MG/0.3ML SYR SUBCUT SCH (22:00)
[2019-02-09] VITALS (46 sets, daily range): BP systolic 92–139; BP diastolic 48–99
[2019-02-09] MEDS: IPRATROPIUM/ALBUTEROL 0.5-3(2.5)MG/3ML NEB HHN SCH ×7 (00:33→23:59)
[2019-02-09] MEDS: METOCLOPRAMIDE HCL 10MG/2ML VIAL IV SCH ×5 (00:57→23:19)
[2019-02-09] MEDS: PIPERACILLIN/TAZOBACTAM 3.375 G in DEXT 5% WATER 100 ML IV SCH ×5 (00:57→23:19)
[2019-02-09 05:22] LABS: BASOPHILS % 0.3 % (0.0-2.0); EOSINOPHILS % 3.9 % (0.0-5.0); HEMATOCRIT. 32.3 % (42.0-52.0); HEMOGLOBIN. 11.1 g/dL (14.0-18.0); LYMPHOCYTES % 7.9 % (20.0-50.0); MEAN CORPUSCULAR HEMOGLOBIN 30.9 pg (28.0-32.0); MEAN CORPUSCULAR VOLUME 89.6 fL (80.0-94.0); MEAN PLATELET VOLUME 8.5 fl (7.4-10.4); MONOCYTES % 6.3 % (2.0-8.0); NEUTROPHILS % 81.6 % (40.0-76.0); PLATELET 278 x1000/uL (130-400); RED CELL DISTRIBUTION WIDTH 13.9 % (11.6-14.6)
[2019-02-09 05:40] LABS: CHLORIDE 105 mEq/L (98-107)
[2019-02-09] MEDS: PROPOFOL 10MG/ML 100ML 100 ML IV PRN ×3 (09:00→19:53)
[2019-02-09] MEDS: QUETIAPINE FUMARATE 25MG TABLET PO SCH (09:12)
[2019-02-09] MEDS: DOCUSATE SODIUM SUGAR FREE 100MG/10ML UDC NG SCH (09:12)
[2019-02-09] MEDS: CITALOPRAM HYDROBROMIDE 10MG TABLET PO SCH (09:12)
[2019-02-09] MEDS: PANTOPRAZOLE SODIUM 40 MG/VIAL IV SCH (09:12)
[2019-02-09] MEDS: VANCOMYCIN 1 G PREMIX 200 ML IV SCH (09:53)
[2019-02-09] MEDS ORDERED: POTASSIUM CHLORIDE INJ 40 MEQ in DEXT 5% WATER 500 ML IV NR (10:30)
[2019-02-09] MEDS: ACETYLCYSTEINE 100MG/ML 10% VIAL 4ML INH SCH ×2 (11:56→23:59)
[2019-02-09] MEDS ORDERED: SODIUM CHLORIDE 3% FOR INH 15ML VIAL NEB INH SCH (12:30)
[2019-02-09] MEDS: BISACODYL 10MG SUPP PR PRN (12:31)
[2019-02-09 13:52] LABS: BG BASE EXCESS 4.3 mmol/L (-2.0-2.0); BG CARBOXYHEMOGLOBIN 0.3 % (0.5-1.5); BG DEOXYHEMOGLOBIN 1.2 % (0.0-5.0); BG FRACTION INSPIRED OXYGEN 40; BG HCO3 ACT 29.1 mmol/L (22.0-26.0); BG METHEMOGLOBIN 0.5 % (0.0-1.5); BG OXYGEN SATURATION 98.8 % (92.0-98.5); BG PCO2 44.1 mmHg (35.0-45.0); BG PH 7.437 (7.350-7.450); BG PO2 170.3 mmHg (75.0-100.0); BG PRESSURE SUPPORT 8; BG SAMPLE SITE LEFT RADIAL; BG TOTAL HEMOGLOBIN 11.8 g/dL (12.0-18.0); BG VENT MODE VENT - CPAP
[2019-02-09] MEDS: SODIUM CHLORIDE 3% FOR INH 4ML UD NEB INH SCH ×3 (15:24→23:59)
[2019-02-09] MEDS: LACTULOSE 20G/30ML UDC PO SCH (20:26)
[2019-02-09] MEDS: ENOXAPARIN 30MG/0.3ML SYR SUBCUT SCH (20:27)
[2019-02-09] MEDS: DEXT 5%/0.45% NACL 1000ML 1,000 ML IV SCH (23:31)
[2019-02-10] VITALS (60 sets, daily range): BP systolic 106–181; BP diastolic 50–138
[2019-02-10] MEDS: FENTANYL CITRATE/PF 1,000 MCG in SODIUM CHLORIDE 0.9% 80 ML IV PRN ×2 (01:28→20:38)
[2019-02-10] MEDS: SODIUM CHLORIDE 3% FOR INH 4ML UD NEB INH SCH (04:27)
[2019-02-10] MEDS: IPRATROPIUM/ALBUTEROL 0.5-3(2.5)MG/3ML NEB HHN SCH ×5 (04:27→20:14)
[2019-02-10] MEDS: PIPERACILLIN/TAZOBACTAM 3.375 G in DEXT 5% WATER 100 ML IV SCH ×3 (05:00→18:07)
[2019-02-10] MEDS: METOCLOPRAMIDE HCL 10MG/2ML VIAL IV SCH ×3 (05:01→18:04)
[2019-02-10] MEDS: VANCOMYCIN 1 G PREMIX 200 ML IV SCH (05:58)
[2019-02-10 05:59] LABS: BASOPHILS % 0.2 % (0.0-2.0); HEMATOCRIT. 32.3 % (42.0-52.0); LYMPHOCYTES % 8.7 % (20.0-50.0); MEAN CORPUSCULAR VOLUME 90.8 fL (80.0-94.0); MEAN PLATELET VOLUME 8.5 fl (7.4-10.4); MONOCYTES % 7.6 % (2.0-8.0); NEUTROPHILS % 79.5 % (40.0-76.0); PLATELET 289 x1000/uL (130-400); RED BLOOD CELL COUNT 3.56 mill/uL (4.7-6.1)
[2019-02-10 08:19] LABS: CHLORIDE 106 mEq/L (98-107)
[2019-02-10] MEDS: QUETIAPINE FUMARATE 25MG TABLET PO SCH (08:26)
[2019-02-10] MEDS: PANTOPRAZOLE SODIUM 40 MG/VIAL IV SCH (08:26)
[2019-02-10] MEDS: CITALOPRAM HYDROBROMIDE 10MG TABLET PO SCH (08:27)
[2019-02-10] MEDS: DOCUSATE SODIUM SUGAR FREE 100MG/10ML UDC NG SCH (08:27)
[2019-02-10] MEDS: ACETYLCYSTEINE 100MG/ML 10% VIAL 4ML INH SCH ×2 (08:32→15:45)
[2019-02-10 12:05] LABS: BG BASE EXCESS 1.4 mmol/L (-2.0-2.0); BG CARBOXYHEMOGLOBIN 0.3 % (0.5-1.5); BG CPAP (cmH2O) 0 cm(H2O); BG DEOXYHEMOGLOBIN 0.9 % (0.0-5.0); BG HCO3 ACT 26.6 mmol/L (22.0-26.0); BG METHEMOGLOBIN 0.1 % (0.0-1.5); BG OXYGEN SATURATION 99.1 % (92.0-98.5); BG OXYHEMOGLOBIN 98.7 % (94.0-97.0); BG PCO2 44.4 mmHg (35.0-45.0); BG PH 7.396 (7.350-7.450); BG PO2 198.2 mmHg (75.0-100.0); BG SAMPLE SITE RIGHT RADIAL; BG TOTAL HEMOGLOBIN 12.1 g/dL (12.0-18.0); BG VENT MODE VENT - CPAP
[2019-02-10 17:52] LABS: BG BASE EXCESS -2.2 mmol/L (-2.0-2.0); BG CARBOXYHEMOGLOBIN 0.3 % (0.5-1.5); BG HCO3 ACT 24.5 mmol/L (22.0-26.0); BG METHEMOGLOBIN 0.4 % (0.0-1.5); BG OXYHEMOGLOBIN 98.3 % (94.0-97.0); BG PCO2 49.9 mmHg (35.0-45.0); BG PH 7.309 (7.350-7.450); BG PO2 194.9 mmHg (75.0-100.0); BG SAMPLE SITE RIGHT RADIAL; BG TIDAL VOLUME(mL) 450 mL; BG TOTAL HEMOGLOBIN 13.5 g/dL (12.0-18.0); BG VENT MODE VENT - A/C; BG VENT RATE 12 set
[2019-02-10] MEDS: LACTULOSE 20G/30ML UDC PO SCH (20:36)
[2019-02-10] MEDS: ENOXAPARIN 30MG/0.3ML SYR SUBCUT SCH (20:36)
[2019-02-10] MEDS: DEXT 5%/0.45% NACL 1000ML 1,000 ML IV SCH (22:24)
[2019-02-11] VITALS (93 sets, daily range): BP systolic 86–199; BP diastolic 42–134
[2019-02-11] MEDS: ACETYLCYSTEINE 100MG/ML 10% VIAL 4ML INH SCH ×3 (00:34→16:14)
[2019-02-11] MEDS: IPRATROPIUM/ALBUTEROL 0.5-3(2.5)MG/3ML NEB HHN SCH ×6 (00:35→20:17)
[2019-02-11] MEDS: PIPERACILLIN/TAZOBACTAM 3.375 G in DEXT 5% WATER 100 ML IV SCH ×4 (00:48→17:04)
[2019-02-11] MEDS: VANCOMYCIN 1 G PREMIX 200 ML IV SCH ×2 (00:48→17:50)
[2019-02-11] MEDS: METOCLOPRAMIDE HCL 10MG/2ML VIAL IV SCH ×4 (00:48→17:05)
[2019-02-11] MEDS: SODIUM CHLORIDE 3% FOR INH 4ML UD NEB INH SCH ×2 (04:26)
[2019-02-11 05:19] LABS: BASOPHILS % 0.2 % (0.0-2.0); EOSINOPHILS % 3.8 % (0.0-5.0); HEMATOCRIT. 34.7 % (42.0-52.0); HEMOGLOBIN. 11.8 g/dL (14.0-18.0); LYMPHOCYTES % 9.2 % (20.0-50.0); MEAN CORPUSCULAR HEMOGLOBIN 30.7 pg (28.0-32.0); MEAN CORPUSCULAR VOLUME 90.1 fL (80.0-94.0); MEAN PLATELET VOLUME 8.3 fl (7.4-10.4); MONOCYTES % 8.9 % (2.0-8.0); NEUTROPHILS % 77.9 % (40.0-76.0); PLATELET 340 x1000/uL (130-400); RED BLOOD CELL COUNT 3.85 mill/uL (4.7-6.1); RED CELL DISTRIBUTION WIDTH 13.7 % (11.6-14.6)
[2019-02-11 05:30] LABS: CHLORIDE 103 mEq/L (98-107)
[2019-02-11] MEDS: QUETIAPINE FUMARATE 25MG TABLET PO SCH (08:29)
[2019-02-11] MEDS: PANTOPRAZOLE SODIUM 40 MG/VIAL IV SCH (08:29)
[2019-02-11] MEDS: DOCUSATE SODIUM SUGAR FREE 100MG/10ML UDC NG SCH (08:29)
[2019-02-11] MEDS: CITALOPRAM HYDROBROMIDE 10MG TABLET PO SCH (08:29)
[2019-02-11 08:55] LABS: BG BASE EXCESS 3.2 mmol/L (-2.0-2.0); BG CARBOXYHEMOGLOBIN 0.3 % (0.5-1.5); BG DEOXYHEMOGLOBIN 0.8 % (0.0-5.0); BG FRACTION INSPIRED OXYGEN 50; BG HCO3 ACT 28.8 mmol/L (22.0-26.0); BG METHEMOGLOBIN 0.2 % (0.0-1.5); BG OXYGEN SATURATION 99.2 % (92.0-98.5); BG OXYHEMOGLOBIN 98.7 % (94.0-97.0); BG PCO2 48.5 mmHg (35.0-45.0); BG PH 7.392 (7.350-7.450); BG PO2 247.4 mmHg (75.0-100.0); BG SAMPLE SITE RIGHT RADIAL; BG TIDAL VOLUME(mL) 450 mL; BG TOTAL HEMOGLOBIN 11.6 g/dL (12.0-18.0); BG VENT MODE VENT - A/C; BG VENT RATE 16 set
[2019-02-11] MEDS ORDERED: KCL 20MEQ/100ML PREMIX 100 ML IV NR (10:30)
[2019-02-11] MEDS: FENTANYL CITRATE/PF 1,000 MCG in SODIUM CHLORIDE 0.9% 80 ML IV PRN (13:23)
[2019-02-11 14:46] LABS: INR 1.1; PROTHROMBIN TIME 10.9 sec (9.6-11.0)
[2019-02-11] MEDS: DEXT 5%/0.45% NACL 1000ML 1,000 ML IV SCH (16:30)
[2019-02-11] MEDS: LACTULOSE 20G/30ML UDC PO SCH (21:00)
[2019-02-11] MEDS: LORAZEPAM 2MG/ML CPJ IV PRN (23:18)
[2019-02-12] VITALS (89 sets, daily range): BP systolic 88–178; BP diastolic 39–112
[2019-02-12] MEDS: ACETYLCYSTEINE 100MG/ML 10% VIAL 4ML INH SCH ×3 (00:27→15:23)
[2019-02-12] MEDS: IPRATROPIUM/ALBUTEROL 0.5-3(2.5)MG/3ML NEB HHN SCH ×6 (00:28→20:10)
[2019-02-12] MEDS: PIPERACILLIN/TAZOBACTAM 3.375 G in DEXT 5% WATER 100 ML IV SCH ×4 (01:22→18:13)
[2019-02-12] MEDS: METOCLOPRAMIDE HCL 10MG/2ML VIAL IV SCH ×5 (01:23→23:48)
[2019-02-12] MEDS: DEXT 5%/0.45% NACL 1000ML 1,000 ML IV SCH (04:09)
[2019-02-12 05:22] LABS: CHLORIDE 104 mEq/L (98-107)
[2019-02-12] MEDS ORDERED: FENTANYL CITRATE/PF 1,000 MCG in SODIUM CHLORIDE 0.9% 80 ML IV PRN (05:30)
[2019-02-12 08:43] LABS: BG BASE EXCESS 1.7 mmol/L (-2.0-2.0); BG DEOXYHEMOGLOBIN 6.4 % (0.0-5.0); BG FRACTION INSPIRED OXYGEN 40; BG HCO3 ACT 27.3 mmol/L (22.0-26.0); BG METHEMOGLOBIN 0.3 % (0.0-1.5); BG OXYGEN SATURATION 93.6 % (92.0-98.5); BG OXYHEMOGLOBIN 93.3 % (94.0-97.0); BG PCO2 47.4 mmHg (35.0-45.0); BG PH 7.379 (7.350-7.450); BG PO2 69.3 mmHg (75.0-100.0); BG SAMPLE SITE RIGHT BRACHIAL; BG TIDAL VOLUME(mL) 450 mL; BG TOTAL HEMOGLOBIN 11.6 g/dL (12.0-18.0); BG VENT MODE VENT - A/C; BG VENT RATE 16 set
[2019-02-12] MEDS: QUETIAPINE FUMARATE 25MG TABLET PO SCH (09:00)
[2019-02-12] MEDS ORDERED: POTASSIUM CHLORIDE 20MEQ/PACKET GT SCH (09:00)
[2019-02-12] MEDS: DOCUSATE SODIUM SUGAR FREE 100MG/10ML UDC NG SCH (09:00)
[2019-02-12] MEDS: CITALOPRAM HYDROBROMIDE 10MG TABLET PO SCH (09:00)
[2019-02-12] MEDS: PANTOPRAZOLE SODIUM 40 MG/VIAL IV SCH (09:37)
[2019-02-12] MEDS ORDERED: POTASSIUM CHLORIDE INJ 40 MEQ in DEXT 5% WATER 500 ML IV SCH (11:00)
[2019-02-12] MEDS: VANCOMYCIN 1 G PREMIX 200 ML IV SCH (12:20)
[2019-02-12] MEDS ORDERED: HYDRALAZINE 20MG/ML VIAL ONE (14:08)
[2019-02-12] MEDS ORDERED: SODIUM CHLORIDE 0.9% 10ML VIAL ONE (14:08)
[2019-02-12] MEDS ORDERED: VECURONIUM BROMIDE 10 MG/VIAL IV ONE (14:08)
[2019-02-12] MEDS ORDERED: LABETALOL HCL 5MG/ML VIAL 20ML IV ONE (14:18)
[2019-02-12] MEDS ORDERED: MIDAZOLAM HCL 5 MG/5 ML VIAL ONE (15:16)
[2019-02-12] MEDS ORDERED: MIDAZOLAM HCL 5 MG/5 ML VIAL IV PRN (15:16)
[2019-02-12] MEDS ORDERED: FENTANYL CITRATE/PF 50MCG/ML 2ML VIAL IV PRN (15:16)
[2019-02-12] MEDS ORDERED: FENTANYL CITRATE/PF 50MCG/ML 2ML VIAL ONE (15:16)
[2019-02-12] MEDS: MORPHINE SULFATE 2 MG/ML CPJ (NOT FOR IM USE) IV PRN ×2 (18:47→23:46)
[2019-02-12] MEDS: LORAZEPAM 2MG/ML CPJ IV PRN (18:56)
[2019-02-12] MEDS: LACTULOSE 20G/30ML UDC PO SCH (21:00)
[2019-02-12] MEDS: CEFAZOLIN 1000MG PREMIX 50 ML IV SCH (23:36)
[2019-02-13] VITALS (102 sets, daily range): BP systolic 92–182; BP diastolic 55–133
[2019-02-13] MEDS: IPRATROPIUM/ALBUTEROL 0.5-3(2.5)MG/3ML NEB HHN SCH ×6 (00:06→23:43)
[2019-02-13] MEDS: ACETYLCYSTEINE 100MG/ML 10% VIAL 4ML INH SCH ×4 (00:06→23:43)
[2019-02-13] MEDS: LORAZEPAM 2MG/ML CPJ IV PRN ×4 (00:48→22:55)
[2019-02-13] MEDS: DEXT 5%/0.45% NACL 1000ML 1,000 ML IV SCH (02:31)
[2019-02-13 06:11] LABS: BASOPHILS % 0.3 % (0.0-2.0); EOSINOPHILS % 2.2 % (0.0-5.0); HEMATOCRIT. 29.8 % (42.0-52.0); HEMOGLOBIN. 10.3 g/dL (14.0-18.0); LYMPHOCYTES % 12.4 % (20.0-50.0); MEAN CORPUSCULAR VOLUME 89.4 fL (80.0-94.0); MEAN PLATELET VOLUME 8.2 fl (7.4-10.4); MONOCYTES % 10.6 % (2.0-8.0); NEUTROPHILS % 74.5 % (40.0-76.0); PLATELET 383 x1000/uL (130-400); RED BLOOD CELL COUNT 3.34 mill/uL (4.7-6.1); RED CELL DISTRIBUTION WIDTH 13.5 % (11.6-14.6)
[2019-02-13 06:19] LABS: CHLORIDE 103 mEq/L (98-107)
[2019-02-13] MEDS: CEFAZOLIN 1000MG PREMIX 50 ML IV SCH ×3 (06:27→22:55)
[2019-02-13] MEDS: METOCLOPRAMIDE HCL 10MG/2ML VIAL IV SCH ×3 (06:27→17:38)
[2019-02-13] MEDS: PANTOPRAZOLE SODIUM 40 MG/VIAL IV SCH (08:10)
[2019-02-13] MEDS: MORPHINE SULFATE 2 MG/ML CPJ (NOT FOR IM USE) IV PRN ×2 (08:11→14:14)
[2019-02-13] MEDS: DOCUSATE SODIUM SUGAR FREE 100MG/10ML UDC NG SCH (08:56)
[2019-02-13] MEDS: QUETIAPINE FUMARATE 25MG TABLET PO SCH (08:56)
[2019-02-13] MEDS: CITALOPRAM HYDROBROMIDE 10MG TABLET PO SCH (08:56)
[2019-02-13] MEDS ORDERED: POTASSIUM CHLORIDE INJ 40 MEQ in DEXT 5% WATER 250 ML IV ONE (10:00)
[2019-02-13] MEDS ORDERED: LABETALOL 5MG/ML SYR 20 MG/4 ML SYRINGE IV PRN (11:30)
[2019-02-13 15:11] LABS: PHOSPHORUS 2.1 mg/dL (2.5-4.9)
[2019-02-13] MEDS: LACTULOSE 20G/30ML UDC PO SCH (21:11)
[2019-02-13] MEDS ORDERED: POTASSIUM PHOS,M-BASIC-D-BASIC 15 MMOL in DEXT 5% WATER 245 ML IV NR (21:30)
[2019-02-13] MEDS ORDERED: MAGNESIUM 2 G PREMIX 50 ML IV NR (21:30)
[2019-02-14] VITALS (37 sets, daily range): BP systolic 106–154; BP diastolic 44–110
[2019-02-14] MEDS: METOCLOPRAMIDE HCL 10MG/2ML VIAL IV SCH ×5 (00:56→23:19)
[2019-02-14] MEDS: CEFAZOLIN 1000MG PREMIX 50 ML IV SCH ×3 (05:29→21:46)
[2019-02-14 05:31] LABS: BASOPHILS % 0.2 % (0.0-2.0); EOSINOPHILS % 2.1 % (0.0-5.0); HEMATOCRIT. 28.7 % (42.0-52.0); LYMPHOCYTES % 8.4 % (20.0-50.0); MEAN CORPUSCULAR HEMOGLOBIN 31.3 pg (28.0-32.0); MEAN CORPUSCULAR VOLUME 89.3 fL (80.0-94.0); MONOCYTES % 11.5 % (2.0-8.0); NEUTROPHILS % 77.8 % (40.0-76.0); RED BLOOD CELL COUNT 3.21 mill/uL (4.7-6.1)
[2019-02-14 05:40] LABS: CHLORIDE 102 mEq/L (98-107)
[2019-02-14] MEDS: ACETYLCYSTEINE 100MG/ML 10% VIAL 4ML INH SCH ×2 (08:30→14:10)
[2019-02-14] MEDS: IPRATROPIUM/ALBUTEROL 0.5-3(2.5)MG/3ML NEB HHN SCH ×3 (08:32→20:33)
[2019-02-14] MEDS: CITALOPRAM HYDROBROMIDE 10MG TABLET PO SCH (09:00)
[2019-02-14] MEDS: DOCUSATE SODIUM SUGAR FREE 100MG/10ML UDC NG SCH (09:00)
[2019-02-14] MEDS: QUETIAPINE FUMARATE 25MG TABLET PO SCH (09:00)
[2019-02-14] MEDS: PANTOPRAZOLE SODIUM 40 MG/VIAL IV SCH (09:49)
[2019-02-14] MEDS: DEXT 5%/0.45% NACL 1000ML 1,000 ML IV SCH (12:47)
[2019-02-14] MEDS: LORAZEPAM 2MG/ML CPJ IV PRN ×2 (12:55→22:23)
[2019-02-14] MEDS ORDERED: POTASSIUM CHLORIDE INJ 40 MEQ in DEXT 5% WATER 500 ML IV NR (14:30)
[2019-02-14] MEDS: MORPHINE SULFATE 2 MG/ML CPJ (NOT FOR IM USE) IV PRN (17:40)
[2019-02-14] MEDS: LACTULOSE 20G/30ML UDC PO SCH (21:00)
[2019-02-15] VITALS (17 sets, daily range): BP systolic 121–168; BP diastolic 61–106
[2019-02-15] MEDS: DEXT 5%/0.45% NACL 1000ML 1,000 ML IV SCH ×2 (00:30→20:22)
[2019-02-15] MEDS: IPRATROPIUM/ALBUTEROL 0.5-3(2.5)MG/3ML NEB HHN SCH ×4 (01:57→20:55)
[2019-02-15 06:28] LABS: BASOPHILS % 0.3 % (0.0-2.0); EOSINOPHILS % 4.2 % (0.0-5.0); HEMATOCRIT. 28.1 % (42.0-52.0); HEMOGLOBIN. 9.8 g/dL (14.0-18.0); LYMPHOCYTES % 10.4 % (20.0-50.0); MEAN CORPUSCULAR HEMOGLOBIN 30.9 pg (28.0-32.0); MEAN CORPUSCULAR VOLUME 88.7 fL (80.0-94.0); MEAN PLATELET VOLUME 7.9 fl (7.4-10.4); MONOCYTES % 10.3 % (2.0-8.0); NEUTROPHILS % 74.8 % (40.0-76.0); PLATELET 427 x1000/uL (130-400); RED BLOOD CELL COUNT 3.17 mill/uL (4.7-6.1); RED CELL DISTRIBUTION WIDTH 13.7 % (11.6-14.6)
[2019-02-15] MEDS: CEFAZOLIN 1000MG PREMIX 50 ML IV SCH ×3 (06:31→21:28)
[2019-02-15] MEDS: METOCLOPRAMIDE HCL 10MG/2ML VIAL IV SCH ×4 (06:31→23:49)
[2019-02-15 06:44] LABS: CHLORIDE 103 mEq/L (98-107)
[2019-02-15] MEDS: QUETIAPINE FUMARATE 25MG TABLET PO SCH (09:00)
[2019-02-15] MEDS: DOCUSATE SODIUM SUGAR FREE 100MG/10ML UDC NG SCH (09:00)
[2019-02-15] MEDS: CITALOPRAM HYDROBROMIDE 10MG TABLET PO SCH (09:00)
[2019-02-15] MEDS ORDERED: POTASSIUM CHLORIDE 20MEQ TABLET SR PO NR (09:15)
[2019-02-15] MEDS: PANTOPRAZOLE SODIUM 40 MG/VIAL IV SCH (09:22)
[2019-02-15] MEDS ORDERED: POTASSIUM CHLORIDE INJ 40 MEQ in DEXT 5% WATER 500 ML IV NR (10:30)
[2019-02-15] MEDS: ACETAMINOPHEN 650MG SUPP PR PRN (13:05)
[2019-02-15] MEDS: MORPHINE SULFATE 2 MG/ML CPJ (NOT FOR IM USE) IV PRN (19:42)
[2019-02-15] MEDS: LACTULOSE 20G/30ML UDC PO SCH (20:22)
[2019-02-15] MEDS: LORAZEPAM 2MG/ML CPJ IV PRN (21:28)
[2019-02-16] VITALS (10 sets, daily range): BP systolic 125–157; BP diastolic 66–116
[2019-02-16] MEDS: IPRATROPIUM/ALBUTEROL 0.5-3(2.5)MG/3ML NEB HHN SCH ×4 (02:00→21:14)
[2019-02-16] MEDS: CEFAZOLIN 1000MG PREMIX 50 ML IV SCH ×3 (05:56→21:12)
[2019-02-16] MEDS: METOCLOPRAMIDE HCL 10MG/2ML VIAL IV SCH ×4 (05:56→23:12)
[2019-02-16] MEDS: DEXT 5%/0.45% NACL 1000ML 1,000 ML IV SCH (05:56)
[2019-02-16 07:07] LABS: CHLORIDE 101 mEq/L (98-107)
[2019-02-16 07:19] LABS: BASOPHILS % 0.5 % (0.0-2.0); EOSINOPHILS % 6.3 % (0.0-5.0); HEMATOCRIT. 29.5 % (42.0-52.0); HEMOGLOBIN. 10.2 g/dL (14.0-18.0); LYMPHOCYTES % 15.6 % (20.0-50.0); MEAN CORPUSCULAR HEMOGLOBIN 30.8 pg (28.0-32.0); MEAN CORPUSCULAR VOLUME 88.7 fL (80.0-94.0); MEAN PLATELET VOLUME 8.4 fl (7.4-10.4); MONOCYTES % 10.9 % (2.0-8.0); NEUTROPHILS % 66.7 % (40.0-76.0); PLATELET 402 x1000/uL (130-400); RED BLOOD CELL COUNT 3.33 mill/uL (4.7-6.1); RED CELL DISTRIBUTION WIDTH 13.6 % (11.6-14.6)
[2019-02-16] MEDS: DOCUSATE SODIUM SUGAR FREE 100MG/10ML UDC NG SCH (09:00)
[2019-02-16] MEDS: PANTOPRAZOLE SODIUM 40 MG/VIAL IV SCH (09:00)
[2019-02-16] MEDS: QUETIAPINE FUMARATE 25MG TABLET PO SCH (09:00)
[2019-02-16] MEDS: CITALOPRAM HYDROBROMIDE 10MG TABLET PO SCH (09:00)
[2019-02-16] MEDS ORDERED: IPRATROPIUM/ALBUTEROL 0.5-3(2.5)MG/3ML NEB HHN PRN (12:30)
[2019-02-16] MEDS ORDERED: KCL 20MEQ/100ML PREMIX 100 ML IV NR (12:30)
[2019-02-16] MEDS ORDERED: POTASSIUM CHLORIDE INJ 40 MEQ in DEXT 5% WATER 250 ML IV NR (13:00)
[2019-02-16] MEDS ORDERED: SKIN ADHESIVE 0.7 GM EA TOP ONE (13:18)
[2019-02-16] MEDS ORDERED: BUPIVACAINE HCL 0.5% (5MG/ML) 50ML ONE (13:19)
[2019-02-16] MEDS ORDERED: FENTANYL CITRATE/PF 50MCG/ML 2ML VIAL ONE (13:32)
[2019-02-16] MEDS ORDERED: MIDAZOLAM HCL 2 MG/2 ML VIAL ONE (13:33)
[2019-02-16] MEDS ORDERED: GLYCOPYRROLATE 0.2 MG/ML 2ML VIAL ONE (13:43)
[2019-02-16] MEDS ORDERED: DEXAMETHASONE 4MG/ML 1ML VIAL ONE (13:51)
[2019-02-16] MEDS ORDERED: ACETYLCYSTEINE 200MG/ML 20% VIAL 4ML INH SCH (14:00)
[2019-02-16] MEDS ORDERED: CEFAZOLIN SODIUM 1000MG/VIAL ONE (14:13)
[2019-02-16] MEDS: ACETYLCYSTEINE 100MG/ML 10% VIAL 4ML INH SCH (14:45)
[2019-02-16] MEDS: MORPHINE SULFATE 2 MG/ML CPJ (NOT FOR IM USE) IV PRN ×2 (16:44→23:47)
[2019-02-16] MEDS: LACTULOSE 20G/30ML UDC PO SCH (21:00)
[2019-02-16] MEDS: LORAZEPAM 2MG/ML CPJ IM PRN (21:11)
[2019-02-17] VITALS (18 sets, daily range): BP systolic 117–162; BP diastolic 68–103
[2019-02-17] MEDS: IPRATROPIUM/ALBUTEROL 0.5-3(2.5)MG/3ML NEB HHN SCH ×5 (01:05→20:08)
[2019-02-17] MEDS: ACETYLCYSTEINE 100MG/ML 10% VIAL 4ML INH SCH ×3 (01:05→15:28)
[2019-02-17 06:13] LABS: CHLORIDE 102 mEq/L (98-107)
[2019-02-17] MEDS: CEFAZOLIN 1000MG PREMIX 50 ML IV SCH ×3 (06:28→21:33)
[2019-02-17] MEDS: METOCLOPRAMIDE HCL 10MG/2ML VIAL IV SCH ×3 (06:29→18:56)
[2019-02-17] MEDS: QUETIAPINE FUMARATE 25MG TABLET PO SCH (10:37)
[2019-02-17] MEDS: PANTOPRAZOLE SODIUM 40 MG/VIAL IV SCH (10:37)
[2019-02-17] MEDS: CITALOPRAM HYDROBROMIDE 10MG TABLET PO SCH (10:38)
[2019-02-17] MEDS: DOCUSATE SODIUM SUGAR FREE 100MG/10ML UDC NG SCH (10:42)
[2019-02-17] MEDS: DEXT 5%/0.45% NACL 1000ML 1,000 ML IV SCH (15:01)
[2019-02-17] MEDS: ACETAMINOPHEN 325MG TABLET PO PRN (15:18)
[2019-02-17] MEDS: LORAZEPAM 2MG/ML CPJ IM PRN ×2 (16:24→21:33)
[2019-02-17] MEDS: LACTULOSE 20G/30ML UDC PO SCH (21:00)
[2019-02-18] VITALS (15 sets, daily range): BP systolic 126–151; BP diastolic 62–92
[2019-02-18] MEDS: METOCLOPRAMIDE HCL 10MG/2ML VIAL IV SCH ×5 (00:56→23:39)
[2019-02-18] MEDS: IPRATROPIUM/ALBUTEROL 0.5-3(2.5)MG/3ML NEB HHN SCH ×4 (01:51→20:34)
[2019-02-18] MEDS: ACETYLCYSTEINE 100MG/ML 10% VIAL 4ML INH SCH ×3 (01:52→14:42)
[2019-02-18 06:07] LABS: CHLORIDE 98 mEq/L (98-107)
[2019-02-18 06:35] LABS: HEMATOCRIT. 34.7 % (42.0-52.0); HEMOGLOBIN. 11.7 g/dL (14.0-18.0); MEAN CORPUSCULAR HEMOGLOBIN 30.4 pg (28.0-32.0); MEAN CORPUSCULAR VOLUME 90.2 fL (80.0-94.0); MEAN PLATELET VOLUME 8.4 fl (7.4-10.4); PLATELET 457 x1000/uL (130-400); RED BLOOD CELL COUNT 3.85 mill/uL (4.7-6.1); RED CELL DISTRIBUTION WIDTH 14.4 % (11.6-14.6)
[2019-02-18] MEDS: CEFAZOLIN 1000MG PREMIX 50 ML IV SCH ×3 (06:50→22:15)
[2019-02-18] MEDS: QUETIAPINE FUMARATE 25MG TABLET PO SCH (08:05)
[2019-02-18] MEDS: CITALOPRAM HYDROBROMIDE 10MG TABLET PO SCH (08:05)
[2019-02-18] MEDS: PANTOPRAZOLE SODIUM 40 MG/VIAL IV SCH (08:06)
[2019-02-18] MEDS: DOCUSATE SODIUM SUGAR FREE 100MG/10ML UDC NG SCH (08:11)
[2019-02-18 09:17] LABS: PLATELET ESTIMATE INCREASED
[2019-02-18] MEDS: DEXT 5%/0.45% NACL 1000ML 1,000 ML IV SCH (13:22)
[2019-02-18] MEDS: LORAZEPAM 2MG/ML CPJ IM PRN (17:06)
[2019-02-18] MEDS: LACTULOSE 20G/30ML UDC PO SCH (22:15)
[2019-02-19] VITALS (8 sets, daily range): BP systolic 118–141; BP diastolic 65–83
[2019-02-19] MEDS: ACETYLCYSTEINE 100MG/ML 10% VIAL 4ML INH SCH ×3 (00:33→14:08)
[2019-02-19] MEDS: IPRATROPIUM/ALBUTEROL 0.5-3(2.5)MG/3ML NEB HHN SCH ×3 (01:01→20:51)
[2019-02-19] MEDS: DEXT 5%/0.45% NACL 1000ML 1,000 ML IV SCH (04:30)
[2019-02-19] MEDS: METOCLOPRAMIDE HCL 10MG/2ML VIAL IV SCH ×3 (06:33→17:50)
[2019-02-19] MEDS: CEFAZOLIN 1000MG PREMIX 50 ML IV SCH ×3 (06:33→22:06)
[2019-02-19] MEDS ORDERED: BUPIVACAINE HCL 0.5% (5MG/ML) 50ML ONE (08:50)
[2019-02-19] MEDS ORDERED: SKIN ADHESIVE 0.7 GM EA TOP ONE (08:50)
[2019-02-19] MEDS: QUETIAPINE FUMARATE 25MG TABLET PO SCH (08:58)
[2019-02-19] MEDS: DOCUSATE SODIUM SUGAR FREE 100MG/10ML UDC NG SCH (08:58)
[2019-02-19] MEDS: PANTOPRAZOLE SODIUM 40 MG/VIAL IV SCH (08:58)
[2019-02-19] MEDS: CITALOPRAM HYDROBROMIDE 10MG TABLET PO SCH (09:02)
[2019-02-19 11:42] LABS: BASOPHILS % 0.2 % (0.0-2.0); HEMATOCRIT. 30.4 % (42.0-52.0); HEMOGLOBIN. 10.9 g/dL (14.0-18.0); LYMPHOCYTES % 7.4 % (20.0-50.0); MEAN CORPUSCULAR HEMOGLOBIN 32.2 pg (28.0-32.0); MEAN CORPUSCULAR VOLUME 89.5 fL (80.0-94.0); MEAN PLATELET VOLUME 8.4 fl (7.4-10.4); MONOCYTES % 7.3 % (2.0-8.0); NEUTROPHILS % 84.1 % (40.0-76.0); PLATELET 381 x1000/uL (130-400); RED BLOOD CELL COUNT 3.39 mill/uL (4.7-6.1); RED CELL DISTRIBUTION WIDTH 14.2 % (11.6-14.6)
[2019-02-19 11:45] LABS: CHLORIDE 101 mEq/L (98-107)
[2019-02-19] MEDS ORDERED: MAGNESIUM 2 G PREMIX 50 ML IV NR (15:00)
[2019-02-19] MEDS: ACETAMINOPHEN 650MG SUPP PR PRN (16:25)
[2019-02-19] MEDS ORDERED: POTASSIUM CHLORIDE INJ 40 MEQ in DEXT 5% WATER 250 ML IV NR (17:00)
[2019-02-19] MEDS: LACTULOSE 20G/30ML UDC PO SCH (22:05)
[2019-02-19] MEDS: LORAZEPAM 2MG/ML CPJ IM PRN (22:06)
[2019-02-20] VITALS (14 sets, daily range): BP systolic 120–149; BP diastolic 56–91
[2019-02-20] MEDS: DEXT 5%/0.45% NACL 1000ML 1,000 ML IV SCH ×2 (00:30→20:30)
[2019-02-20] MEDS: METOCLOPRAMIDE HCL 10MG/2ML VIAL IV SCH ×4 (00:52→17:28)
[2019-02-20] MEDS: ACETYLCYSTEINE 100MG/ML 10% VIAL 4ML INH SCH ×3 (01:57→15:10)
[2019-02-20] MEDS: IPRATROPIUM/ALBUTEROL 0.5-3(2.5)MG/3ML NEB HHN SCH ×4 (01:58→20:33)
[2019-02-20] MEDS: CITALOPRAM HYDROBROMIDE 10MG TABLET PO SCH (09:40)
[2019-02-20] MEDS: DOCUSATE SODIUM SUGAR FREE 100MG/10ML UDC NG SCH (09:40)
[2019-02-20] MEDS: PANTOPRAZOLE SODIUM 40 MG/VIAL IV SCH (09:40)
[2019-02-20] MEDS: QUETIAPINE FUMARATE 25MG TABLET PO SCH (09:41)
[2019-02-20] MEDS: ACETAMINOPHEN 325MG TABLET PO PRN (09:59)
[2019-02-20] MEDS ORDERED: POTASSIUM CHLORIDE 20MEQ/PACKET GT SCH (15:45)
[2019-02-21] VITALS (15 sets, daily range): BP systolic 109–147; BP diastolic 59–102
[2019-02-21] MEDS: IPRATROPIUM/ALBUTEROL 0.5-3(2.5)MG/3ML NEB HHN SCH ×4 (00:31→20:27)
[2019-02-21] MEDS: ACETYLCYSTEINE 100MG/ML 10% VIAL 4ML INH SCH ×2 (00:33→08:54)
[2019-02-21] MEDS: METOCLOPRAMIDE HCL 10MG/2ML VIAL IV SCH ×4 (01:33→17:11)
[2019-02-21] MEDS: DEXT 5%/0.45% NACL 1000ML 1,000 ML IV SCH ×2 (05:24→17:11)
[2019-02-21 07:20] LABS: BASOPHILS % 0.4 % (0.0-2.0); EOSINOPHILS % 5.9 % (0.0-5.0); HEMATOCRIT. 28.8 % (42.0-52.0); LYMPHOCYTES % 9.3 % (20.0-50.0); MEAN CORPUSCULAR HEMOGLOBIN 31.2 pg (28.0-32.0); MEAN CORPUSCULAR VOLUME 90.1 fL (80.0-94.0); MEAN PLATELET VOLUME 8.5 fl (7.4-10.4); MONOCYTES % 8.3 % (2.0-8.0); NEUTROPHILS % 76.1 % (40.0-76.0); PLATELET 322 x1000/uL (130-400); RED CELL DISTRIBUTION WIDTH 13.5 % (11.6-14.6)
[2019-02-21 07:30] LABS: CHLORIDE 102 mEq/L (98-107)
[2019-02-21] MEDS: PANTOPRAZOLE SODIUM 40 MG/VIAL IV SCH (08:13)
[2019-02-21] MEDS: DOCUSATE SODIUM SUGAR FREE 100MG/10ML UDC NG SCH (08:13)
[2019-02-21] MEDS: CITALOPRAM HYDROBROMIDE 10MG TABLET PO SCH (08:13)
[2019-02-21] MEDS: QUETIAPINE FUMARATE 25MG TABLET PO SCH (08:13)
[2019-02-21] MEDS: ACETAMINOPHEN 325MG TABLET PO PRN (12:58)
[2019-02-21] MEDS: LORAZEPAM 2MG/ML CPJ IM PRN (12:58)
[2019-02-22] VITALS (14 sets, daily range): BP systolic 99–146; BP diastolic 57–91
[2019-02-22] MEDS: IPRATROPIUM/ALBUTEROL 0.5-3(2.5)MG/3ML NEB HHN SCH ×4 (03:13→20:58)
[2019-02-22] MEDS: METOCLOPRAMIDE HCL 10MG/2ML VIAL IV SCH ×5 (05:47→23:57)
[2019-02-22] MEDS: DOCUSATE SODIUM SUGAR FREE 100MG/10ML UDC NG SCH (08:56)
[2019-02-22] MEDS: CITALOPRAM HYDROBROMIDE 10MG TABLET PO SCH (08:56)
[2019-02-22] MEDS: PANTOPRAZOLE SODIUM 40 MG/VIAL IV SCH (08:56)
[2019-02-22] MEDS: QUETIAPINE FUMARATE 25MG TABLET PO SCH (08:56)
[2019-02-22] MEDS: DEXT 5%/0.45% NACL 1000ML 1,000 ML IV SCH ×2 (09:06→18:08)
[2019-02-22] MEDS ORDERED: NA PHOS,M-B/NA PHOS,DI-BA ENEMA 118ML PR SCH (11:30)
[2019-02-23] VITALS (10 sets, daily range): BP systolic 106–151; BP diastolic 64–95
[2019-02-23] MEDS: IPRATROPIUM/ALBUTEROL 0.5-3(2.5)MG/3ML NEB HHN SCH ×3 (02:05→13:43)
[2019-02-23] MEDS: METOCLOPRAMIDE HCL 10MG/2ML VIAL IV SCH ×3 (05:31→17:23)
[2019-02-23] MEDS: DOCUSATE SODIUM SUGAR FREE 100MG/10ML UDC NG SCH (09:19)
[2019-02-23] MEDS: QUETIAPINE FUMARATE 25MG TABLET PO SCH (09:19)
[2019-02-23] MEDS: CITALOPRAM HYDROBROMIDE 10MG TABLET PO SCH (09:19)
[2019-02-23] MEDS: PANTOPRAZOLE SODIUM 40 MG/VIAL IV SCH (09:19)
[2019-02-23] MEDS ORDERED: QUET25TA PO (11:44)
[2019-02-23] MEDS ORDERED: PANT40TA4 MT (11:44)
[2019-02-23] MEDS ORDERED: METO-293 MT (14:36)
== END 2019-02-23 19:40 | DRG 4 ==
LOC: ER 18:24 → EDBEDREQSVC 19:38 → EDBEDREQ 19:38 → EDBEDREQTM 19:38 → MICUSO 19:45 → EDBEDREQ 19:49 → EDBEDREQTM 19:49 → ENRESERV 20:03 → 5EST 02-14 06:15
PROVIDERS: ADMIT Internal Medicine; ATTEND Internal Medicine
PROC: 02HV33Z Insertion of Infusion Device into Superior Vena Cava, Percutaneous Approach (ICD-10-PCS; 2019-02-11)
PROC: B548ZZA Ultrasonography of Superior Vena Cava, Guidance (ICD-10-PCS; 2019-02-11)
PROC: 5A1955Z Respiratory Ventilation, Greater than 96 Consecutive Hours (ICD-10-PCS; principal; 2019-02-12)
PROC: 0B110F4 Bypass Trachea to Cutaneous with Tracheostomy Device, Open Approach (ICD-10-PCS; 2019-02-12)
PROC: 0BH17EZ Insertion of Endotracheal Airway into Trachea, Via Natural or Artificial Opening (ICD-10-PCS; 2019-02-12)
PROC: 0GBJ0ZZ Excision of Thyroid Gland Isthmus, Open Approach (ICD-10-PCS; 2019-02-12)
PROC: 0DH60UZ Insertion of Feeding Device into Stomach, Open Approach (ICD-10-PCS; 2019-02-16)
DX: A41.59 Other Gram-negative sepsis (principal); J69.0 Pneumonitis due to inhalation of food and vomit; G93.40 Encephalopathy, unspecified; J96.21 Acute and chronic respiratory failure with hypoxia; E46 Unspecified protein-calorie malnutrition; K56.7 Ileus, unspecified; R13.10 Dysphagia, unspecified; E87.2 Acidosis; E11.65 Type 2 diabetes mellitus with hyperglycemia; E87.0 Hyperosmolality and hypernatremia; G80.9 Cerebral palsy, unspecified; K59.00 Constipation, unspecified; D64.9 Anemia, unspecified; E87.6 Hypokalemia; G25.9 Extrapyramidal and movement disorder, unspecified; R63.3 Feeding difficulties; R65.20 Severe sepsis without septic shock; Z78.1 Physical restraint status; Z99.11 Dependence on respirator [ventilator] status; F32.9 Major depressive disorder, single episode, unspecified; R74.0 Nonspecific elevation of levels of transaminase and lactic acid dehydrogenase [LDH]; Z53.9 Procedure and treatment not carried out, unspecified reason; Z68.1 Body mass index [BMI] 19.9 or less, adult
CPT/HCPCS: 36415; 36600; 71045; 71250; 74018; 76700; 76937; 80048; 80076; 80202; 81003; 82375; 82805; 83036; 83605; 83735; 83880; 84100; 84132; 84145; 84478; 84484; 87070; 87077; 87186; 87804; 93005; 93970; 94002; 94003; 94640; 94667; 96365; 97161; 99291; A6261; C1725; C1893; C9113; J0360; J0690; J1100; J1650; J2060; J2250; J2270; J2543; J2704; J2765; J3010; J3370; J3475; J3480; J3490; J7030; J7040; J7050; J7060; J7608; J7620